=== PATIENT | female | born 1995 | race Caucasian/White ===

== ENCOUNTER → 2021-04-08 | Day surgery (SDC) | payer BC ==
[2021-04-08 07:44] LABS: HEMOGLOBIN 13.8 gm/dl (12.3-15.3); RED BLOOD COUNT 4.52 M/UL (4.00-5.10)
== END | disposition home or self-care (01) ==
LOC: OR 07:08
PROVIDERS: Obstetrics & Gynecology
DX: O02.1 Missed abortion (principal); F41.9 Anxiety disorder, unspecified; Z88.1 Allergy status to other antibiotic agents; Z53.8 Procedure and treatment not carried out for other reasons
CPT/HCPCS: 36415; 81001; 85025; J1100; J1885; J2001; J2250; J2405; J2704; J2795; J3010; J7120